=== PATIENT | male | born 1980 | race African-American/Black ===

== ENCOUNTER 2017-02-01 23:25 | Emergency (ER) | payer SELFPAY ==
[2017-02-01] MEDS ORDERED: Ibuprofen 800 MG TAB ONE (23:53)
[2017-02-01] MEDS ORDERED: Acetaminophen 500 MG TAB ONE (23:53)
== END 2017-02-02 | disposition home or self-care (01) ==
LOC: ERS 23:25
DX: J11.1 Influenza due to unidentified influenza virus with other respiratory manifestations (principal)
CPT/HCPCS: 99283

== ENCOUNTER 2017-04-03 00:33 | Emergency (ER) | payer BC, SELFPAY ==
[2017-04-03] MEDS ORDERED: Azithromycin 250 MG TAB ONE (01:14)
[2017-04-03] MEDS ORDERED: cefTRIAXone\\ROCEPHIN 250 MG VIAL ONE (01:14)
[2017-04-03] MEDS ORDERED: Lidocaine 1% PF 5 ML VIAL ONE (01:15)
[2017-04-03 21:46] LABS: Chlamydia by PCR Not Detected (NotDetected); GC by PCR Not Detected (NotDetected)
== END 2017-04-03 01:55 | disposition home or self-care (01) ==
LOC: ERS 00:33
DX: Z20.2 Contact with and (suspected) exposure to infections with a predominantly sexual mode of transmission (principal)
CPT/HCPCS: 87491; 87591; 96372; J0696; J2001

== ENCOUNTER 2020-05-13 18:04 | Emergency (ER) | payer BC, SELFPAY ==
[2020-05-13 20:00] LABS: #Basophils 0.1 thou/uL (0.0-0.2); #Eosinphils 0.1 thou/uL (0.0-0.7); #Lymphocytes 2.7 thou/uL (1.20-3.40); #Monocytes 0.8 thou/uL (0.11-0.59); #Neutrophils 4.6 thou/uL (1.40-6.50); %Eosinophils 1.4 % (0.0-10.0); %Lymphocytes 32.9 % (21.0-51.0); %Monocytes 9.6 % (0.0-10.0); %Neutrophils 55.1 % (42.0-75.0); Hemoglobin 15.3 g/dL (14.0-18.0); Mean Corpuscular HGB CONC 34.4 g/dL (32.0-36.0); Mean Corpuscular Hemoglobin 32.2 pg (27.0-31.0); Mean Corpuscular Volume 93.8 fL (78.0-98.0); Mean Platelet Volume 6.3 fL (7.4-10.4); Platelet Count 388 thou/uL (130-400); RBC Distribution Width 12.1 % (11.5-14.5); Red Blood Cell (RBC) Count 4.74 mill/uL (4.70-6.10); White Blood Cell (WBC) Count 8.3 thou/uL (4.8-10.8)
[2020-05-13 20:05] LABS: Prothrombin Time 12.8 sec (12.0-14.7)
[2020-05-13 20:22] LABS: ALT (SGPT) 26 U/L (8-55); AST (SGOT) 24 U/L (5-34); Albumin 4.7 g/dL (3.5-5.0); Alkaline Phosphatase 87 U/L (40-110); Anion Gap 14 mmol/L (10-20); BUN (Urea Nitrogen) 10 mg/dL (8.9-20.6); Bilirubin, Total 0.6 mg/dL (0.2-1.2); Calc. Creatinine Clearance 0 mL/min (70-130); Calcium 9.6 mg/dL (7.8-10.44); Carbon Dioxide 24 mmol/L (22-29); Chloride 103 mmol/L (98-107); Globulin 3.3 g/dL (2.4-3.5); Glucose 86 mg/dL (70-105); Lipase 14 U/L (8-78); Potassium 4.2 mmol/L (3.5-5.1); Sodium 137 mmol/L (136-145)
== END 2020-05-13 20:42 | disposition home or self-care (01) ==
LOC: ERS 18:04
DX: R53.1 Weakness (principal); R55 Syncope and collapse; I10 Essential (primary) hypertension; F17.200 Nicotine dependence, unspecified, uncomplicated
CPT/HCPCS: 36415; 80053; 83690; 84484; 85025; 85610; 93005

== ENCOUNTER 2021-02-11 18:31 | Emergency (ER) | payer OTHER, SELFPAY ==
[2021-02-12 07:52] LABS: SARS-CoV-2 PCR by NAA DETECTED (NotDetected)
== END 2021-02-11 19:50 | disposition home or self-care (01) ==
LOC: ERS 18:31
DX: U07.1 COVID-19 (principal)
CPT/HCPCS: 99283; U0003; U0005